=== PATIENT | male | born 1970 | race Caucasian/White ===

== ENCOUNTER 2023-03-30 15:27 | Inpatient (IN) | payer OTHER ==
[2023-03-30 16:14] LABS: #Eosinphils 0.1 thou/uL (0.0-0.7); #Monocytes 0.4 thou/uL (0.11-0.59); #Neutrophils 3.3 thou/uL (1.40-6.50); %Basophils 0.5 % (0.0-1.0); %Eosinophils 3.4 % (0.0-10.0); %Lymphocytes 6.3 % (21.0-51.0); %Monocytes 9.7 % (0.0-10.0); %Neutrophils 79.6 % (42.0-75.0); Hematocrit 26.2 % (42.0-52.0); Hemoglobin 7.5 g/dL (14.0-18.0); Mean Corpuscular HGB CONC 28.6 g/dL (32.0-36.0); Mean Corpuscular Hemoglobin 24.6 pg (27.0-31.0); Mean Corpuscular Volume 85.9 fl (78.0-98.0); Mean Platelet Volume 11.7 fL (7.4-10.4); RBC Distribution Width 18.4 % (11.5-14.5); Red Blood Cell (RBC) Count 3.05 mill/uL (4.70-6.10); White Blood Cell (WBC) Count 4.1 10x3/uL (4.8-10.8)
[2023-03-30 16:17] LABS: Platelet Count 125 10x3/uL (130-400)
[2023-03-30] MEDS ORDERED: fentaNYL 50 mcg/mL 1 mL Vial ONE (16:31)
[2023-03-30 16:47] LABS: Influenza A by NAA Not Detected (NotDetected); Influenza B by NAA Not Detected (NotDetected); SARS-CoV-2 NAA Rapid Test Not Detected (NotDetected)
[2023-03-30 17:09] LABS: Troponin I Less than 0.010 ng/mL (< 0.028)
[2023-03-30 17:11] LABS: Anion Gap 15 mmol/L (10-20); BUN (Urea Nitrogen) 122 mg/dL (8.4-25.7); Calc. Creatinine Clearance 0 mL/min (70-130); Carbon Dioxide 23 mmol/L (22-29); Chloride 104 mmol/L (98-107); Estimated GFR 12; Magnesium 2.9 mg/dL (1.6-2.6); Potassium 5.3 mmol/L (3.5-5.1); Sodium 137 mmol/L (136-145)
[2023-03-30 17:12] LABS: ALT (SGPT) 19 U/L (8-55); AST (SGOT) 17 U/L (5-34); Albumin 3.8 g/dL (3.5-5.0); Alkaline Phosphatase 96 U/L (40-110); Bilirubin, Total 0.4 mg/dL (0.2-1.2); Calcium 8.6 mg/dL (7.6-10.4); Globulin 3.7 g/dL (2.4-3.5); Glucose 59 mg/dL (70-105); Protein, Total 7.5 g/dL (6.0-8.3)
[2023-03-30] MEDS ORDERED: Furosemide 100 MG (10 mL) VIAL ONE (17:43)
[2023-03-30] MEDS ORDERED: Dextrose 5% in Water 1,000 ML IV PRN (17:43)
[2023-03-30] MEDS ORDERED: Dextrose 50% Abboject 50 ML SYRINGE SLOW IVP PRN (17:43)
[2023-03-30] MEDS ORDERED: Ondansetron ODT 4 MG TAB PO PRN (17:43)
[2023-03-30] MEDS ORDERED: Acetaminophen 650 MG Suppository PR PRN (17:43)
[2023-03-30] MEDS ORDERED: Glucagon 1 MG/ML KIT IM PRN (17:43)
[2023-03-30] MEDS ORDERED: CALCIUM GLUC 1 GM (50 ML) BAG ONE (17:44)
[2023-03-30] MEDS ORDERED: Ipratropium/Albuterol 3 ML NEB NEB PRN (18:26)
[2023-03-30 19:17] LABS: Iron 26 ug/dL (65-175); Iron Binding Capacity, Total 339 mcg/dL (261-462)
[2023-03-30] MEDS: Ipratropium/Albuterol 3 ML NEB NEB SCH (19:51)
[2023-03-30] MEDS ORDERED: Famotidine 20 MG TAB PO SCH (21:00)
[2023-03-30] MEDS: Furosemide 100 MG (10 mL) VIAL SLOW IVP SCH (21:51)
[2023-03-30] MEDS: Metolazone 5 MG TAB PO SCH (21:52)
[2023-03-30] MEDS: Morphine 2 MG/ML VIAL SLOW IVP PRN (21:53)
[2023-03-30] MEDS ORDERED: traMADol HCl 50 MG TAB PO PRN (23:43)
[2023-03-30] MEDS ORDERED: Albuterol 200 PUFF (6.7GM INHALER) INH PRN (23:57)
[2023-03-31] MEDS: Iron, Sodium Ferric Gluconate 125 MG in Sodium Chloride 0.9% 100 ML IVPB SCH (00:30)
[2023-03-31 01:18] LABS: Bilirubin Negative (Negative); Blood, Urine 3+ (Negative); Clarity Turbid (Clear); Glucose, Urine (Dipstick) Normal (Negative); Ketone, Urine Negative (Negative); Leukocyte 25 Leu/uL (Negative); Nitrite Negative (Negative); Protein, Urine (Dipstick) 50 mg/dL (Neg-Trace); RBC/HPF Greater than 50 HPF (0-3); Specific Gravity, Urine 1.012 (1.002-1.036); Squamous Epithelial None Seen HPF (0-3); Urobilinogen Normal mg/dL (Less than 2)
[2023-03-31 01:19] LABS: Bacteria/HPF 1+ HPF (None Seen)
[2023-03-31] MEDS: cefTRIAXone\\ROCEPHIN 1 GM in Sodium Chloride 0.9% 100 ML IVPB SCH (01:46)
[2023-03-31 02:22] LABS: #Eosinphils 0.1 thou/uL (0.0-0.7); #Monocytes 0.3 thou/uL (0.11-0.59); #Neutrophils 2.7 thou/uL (1.40-6.50); %Basophils 0.3 % (0.0-1.0); %Eosinophils 2.6 % (0.0-10.0); %Lymphocytes 7.8 % (21.0-51.0); %Monocytes 9.9 % (0.0-10.0); %Neutrophils 78.8 % (42.0-75.0); Hematocrit 26.9 % (42.0-52.0); Hemoglobin 7.5 g/dL (14.0-18.0); Mean Corpuscular HGB CONC 27.9 g/dL (32.0-36.0); Mean Corpuscular Hemoglobin 24.8 pg (27.0-31.0); Mean Platelet Volume 11.5 fL (7.4-10.4); Platelet Count 106 10x3/uL (130-400); RBC Distribution Width 18.5 % (11.5-14.5); Red Blood Cell (RBC) Count 3.03 mill/uL (4.70-6.10); White Blood Cell (WBC) Count 3.5 10x3/uL (4.8-10.8)
[2023-03-31 02:24] LABS: Mean Corpuscular Volume 88.8 fl (78.0-98.0)
[2023-03-31 02:35] LABS: Creatinine, Urine 116.26 mg/dL (63-166)
[2023-03-31 02:38] LABS: Hemoglobin A1c 6.1 % (4.0-6.0)
[2023-03-31 03:18] LABS: Anion Gap 18 mmol/L (10-20); BUN (Urea Nitrogen) 124 mg/dL (8.4-25.7); Calc. Creatinine Clearance 36 mL/min (70-130); Calcium 8.6 mg/dL (7.8-10.44); Carbon Dioxide 19 mmol/L (22-29); Chloride 105 mmol/L (98-107); Estimated GFR 12; Glucose 103 mg/dL (70-105); Magnesium 2.9 mg/dL (1.6-2.6); Potassium 5.4 mmol/L (3.5-5.1); Sodium 137 mmol/L (136-145)
[2023-03-31 05:05] LABS: Free T4 (Free Thyroxine) 0.93 ng/dL (0.70-1.48)
[2023-03-31] MEDS: Insulin Regular 300 UNITS/3 ML VIAL IVP SCH (05:16)
[2023-03-31] MEDS: Dextrose 50% Abboject 50 ML SYRINGE SLOW IVP SCH (05:16)
[2023-03-31] MEDS: Sodium Bicarb 50 mEq/50 ML VIAL IVP SCH (05:17)
[2023-03-31] MEDS ORDERED: Iron Sucrose Complex 200 MG in Sodium Chloride 0.9% 100 ML IVPB SCH (06:30)
[2023-03-31 06:39] LABS: Hematocrit 25.5 % (42.0-52.0); Hemoglobin 7.3 g/dL (14.0-18.0)
[2023-03-31 07:49] LABS: INR-International Normal Ratio 1.3; Prothrombin Time 16.4 sec (12.0-14.7)
[2023-03-31 07:51] LABS: PTT 41.1 sec (22.9-36.1)
[2023-03-31 07:57] LABS: Anion Gap 16 mmol/L (10-20); BUN (Urea Nitrogen) 125 mg/dL (8.4-25.7); Calc. Creatinine Clearance 35 mL/min (70-130); Calcium 8.8 mg/dL (7.8-10.44); Carbon Dioxide 22 mmol/L (22-29); Chloride 106 mmol/L (98-107); Estimated GFR 12; Glucose 108 mg/dL (70-105); Sodium 139 mmol/L (136-145)
[2023-03-31 08:41] LABS: HBSAB Concentration Less than 8.00 mIU/mL; HBSAg Index 0.26 S/CO (0-0.99); Hep B Core Total Ab Non-Reactive (NonReactive); Hep B Core Total Index 0.17 S/CO (0-0.79); Hep B Surf AB Non-Reactive (NonReactive); Hep B Surf Ag Non-Reactive S/CO (NonReactive); Hep C IgG Ab Non-Reactive S/CO (NonReactive)
[2023-03-31] MEDS ORDERED: hydrALAZINE 25 MG TAB PO SCH (09:00)
[2023-03-31] MEDS ORDERED: Lidocaine 1% (PF) 30 ML VIAL NERVE BLCK SCH (11:15)
[2023-03-31] MEDS: Iron, Sodium Ferric Gluconate 250 MG in Sodium Chloride 0.9% 250 ML 250 ML IVPB SCH (15:33)
[2023-03-31] MEDS: Acetaminophen 325 MG TAB PO PRN (15:34)
[2023-03-31] MEDS: Ferrous Sulfate 325 MG TAB PO SCH (20:07)
[2023-03-31] MEDS: Famotidine 20 MG TAB PO SCH (20:07)
[2023-03-31] MEDS: Gabapentin 300 MG CAP PO SCH (20:07)
[2023-03-31] MEDS: Multivitamin W/ Minerals 1 TAB PO SCH (20:09)
[2023-03-31] MEDS ORDERED: Non-Formulary Item 1 EACH (Gabapentin [Neurontin] 800 MG Tablet) PO SCH (21:00)
[2023-04-01] MEDS: Ondansetron PF 4 MG/2 ML Vial IVP PRN (02:35)
[2023-04-01 05:25] LABS: #Monocytes 0.6 thou/uL (0.11-0.59); #Neutrophils 3.2 thou/uL (1.40-6.50); %Lymphocytes 6.6 % (21.0-51.0); %Monocytes 14.8 % (0.0-10.0); %Neutrophils 76.6 % (42.0-75.0); Hematocrit 25.2 % (42.0-52.0); Hemoglobin 7.1 g/dL (14.0-18.0); Mean Corpuscular HGB CONC 28.2 g/dL (32.0-36.0); Mean Corpuscular Hemoglobin 24.8 pg (27.0-31.0); Mean Corpuscular Volume 88.1 fl (78.0-98.0); Mean Platelet Volume 12.7 fL (7.4-10.4); Platelet Count 125 10x3/uL (130-400); RBC Distribution Width 18.3 % (11.5-14.5); Red Blood Cell (RBC) Count 2.86 mill/uL (4.70-6.10); White Blood Cell (WBC) Count 4.1 10x3/uL (4.8-10.8)
[2023-04-01 05:48] LABS: Anion Gap 16 mmol/L (10-20); BUN (Urea Nitrogen) 105 mg/dL (8.4-25.7); Calc. Creatinine Clearance 37 mL/min (70-130); Calcium 8.7 mg/dL (7.8-10.44); Carbon Dioxide 22 mmol/L (22-29); Chloride 104 mmol/L (98-107); Estimated GFR 13; Glucose 80 mg/dL (70-105); Magnesium 2.7 mg/dL (1.6-2.6); Potassium 4.9 mmol/L (3.5-5.1); Sodium 137 mmol/L (136-145)
[2023-04-01] MEDS: Levothyroxine Sodium 75 MCG TAB PO SCH (06:14)
[2023-04-01 06:29] LABS: Anisocytosis MODERATE=16-30 cells HPF (0-5); CellaVision Operator ID lab.sh2; Hypochromia SLIGHT = 6-15 cells HPF (0-5); Ovalocytes SLIGHT = 2-5 cells HPF (0-1); Platelet Adequacy Comment Platelets Decreased; Poikilocytosis SLIGHT = 6-15 cells HPF (0-5); Polychromasia SLIGHT = 2-3 cells HPF (0-2)
[2023-04-02 07:31] LABS: Hematocrit 28.9 % (42.0-52.0); Hemoglobin 8.2 g/dL (14.0-18.0); Manual Diff?? YES; Mean Corpuscular HGB CONC 28.4 g/dL (32.0-36.0); Mean Corpuscular Hemoglobin 24.5 pg (27.0-31.0); Mean Corpuscular Volume 86.3 fl (78.0-98.0); Mean Platelet Volume 11.4 fL (7.4-10.4); Platelet Count 125 10x3/uL (130-400); RBC Distribution Width 18.2 % (11.5-14.5); Red Blood Cell (RBC) Count 3.35 mill/uL (4.70-6.10); White Blood Cell (WBC) Count 4.4 10x3/uL (4.8-10.8)
[2023-04-02 07:37] LABS: Delete Auto Diff?? YES
[2023-04-02 07:58] LABS: Anion Gap 15 mmol/L (10-20); BUN (Urea Nitrogen) 69 mg/dL (8.4-25.7); Calc. Creatinine Clearance 46 mL/min (70-130); Calcium 8.4 mg/dL (7.8-10.44); Carbon Dioxide 27 mmol/L (22-29); Chloride 101 mmol/L (98-107); Estimated GFR 16; Glucose 74 mg/dL (70-105); Potassium 4.5 mmol/L (3.5-5.1); Sodium 138 mmol/L (136-145)
[2023-04-02 08:25] LABS: Anisocytosis SLIGHT = 6-15 cells HPF (0-5); Burr Cells SLIGHT = 2-5 cells HPF (0-1); CellaVision Operator ID LAB.KW3; Elliptocytes SLIGHT = 2-5 cells HPF (0-1); Eosinophils 3 % (0-10); Large Platelets 12.2 % (0-5); Lymphocytes 6 % (21-51); Monocytes 7 % (0-10); Neutrophil 82 % (42-75); Nucleated RBC (Manual Ct) 6 % (0); Platelet Adequacy Comment Platelets Decreased; Polychromasia SLIGHT = 2-3 cells HPF (0-2); Schistocytes SLIGHT = 2-5 cells HPF (0-1); Total Cell Count 98
[2023-04-02] MEDS: Tuberculin PPD 0.1 ML VIAL I-DERMAL SCH (08:55)
[2023-04-02] MEDS: FLU VACC QS2023-24(6MOS UP)/PF 60 MCG/0.5 ML SYRINGE IM ONE (09:13)
[2023-04-02 11:39] VITALS: BMI 499399.4
[2023-04-02] MEDS: Famotidine 20 MG TAB PO SCH (20:00)
[2023-04-02] MEDS: traMADol HCl 50 MG TAB PO PRN (20:01)
[2023-04-03 04:46] LABS: #Eosinphils 0.1 thou/uL (0.0-0.7); #Monocytes 0.9 thou/uL (0.11-0.59); #Neutrophils 3.6 thou/uL (1.40-6.50); %Basophils 0.6 % (0.0-1.0); %Eosinophils 2.1 % (0.0-10.0); %Lymphocytes 8.8 % (21.0-51.0); %Monocytes 17.6 % (0.0-10.0); %Neutrophils 70.1 % (42.0-75.0); Hematocrit 28.2 % (42.0-52.0); Hemoglobin 8.1 g/dL (14.0-18.0); Mean Corpuscular HGB CONC 28.7 g/dL (32.0-36.0); Mean Platelet Volume 11.3 fL (7.4-10.4); Platelet Count 140 10x3/uL (130-400); RBC Distribution Width 18.1 % (11.5-14.5); Red Blood Cell (RBC) Count 3.37 mill/uL (4.70-6.10); White Blood Cell (WBC) Count 5.1 10x3/uL (4.8-10.8)
[2023-04-03 05:03] LABS: Phosphorus 3.7 mg/dL (2.3-4.7)
[2023-04-03 05:16] LABS: Mean Corpuscular Volume 83.7 fl (78.0-98.0)
[2023-04-03] MEDS: EPOETIN ALFA-EPBX (ESRD) 10,000 UNITS/ML VIAL SC SCH (10:18)
[2023-04-03] MEDS: hydrALAZINE 25 MG TAB PO SCH (15:00)
[2023-04-03] MEDS: Carvedilol 6.25 MG TAB PO SCH (18:15)
[2023-04-03] MEDS ORDERED: Melatonin 3 MG TAB PO PRN (19:54)
[2023-04-03] MEDS ORDERED: Heparin 5,000 UNITS/ML VIAL SC SCH (21:00)
[2023-04-04] MEDS: Lorazepam 2 MG/ML VIAL SLOW IVP SCH ×2 (02:41→03:56)
[2023-04-04 03:23] LABS: #Eosinphils 0.1 thou/uL (0.0-0.7); #Monocytes 0.9 thou/uL (0.11-0.59); #Neutrophils 4.3 thou/uL (1.40-6.50); %Basophils 0.5 % (0.0-1.0); %Eosinophils 1.6 % (0.0-10.0); %Lymphocytes 6.8 % (21.0-51.0); %Neutrophils 75.4 % (42.0-75.0); Hematocrit 28.2 % (42.0-52.0); Hemoglobin 8.2 g/dL (14.0-18.0); Mean Corpuscular HGB CONC 29.1 g/dL (32.0-36.0); Mean Corpuscular Hemoglobin 24.8 pg (27.0-31.0); Mean Corpuscular Volume 85.2 fl (78.0-98.0); Mean Platelet Volume 10.4 fL (7.4-10.4); Platelet Count 124 10x3/uL (130-400); RBC Distribution Width 18.5 % (11.5-14.5); Red Blood Cell (RBC) Count 3.31 mill/uL (4.70-6.10); White Blood Cell (WBC) Count 5.8 10x3/uL (4.8-10.8)
[2023-04-04 03:48] LABS: Anion Gap 16 mmol/L (10-20); BUN (Urea Nitrogen) 46 mg/dL (8.4-25.7); Calc. Creatinine Clearance 49 mL/min (70-130); Calcium 9.2 mg/dL (7.8-10.44); Carbon Dioxide 25 mmol/L (22-29); Chloride 103 mmol/L (98-107); Estimated GFR 20; Glucose 78 mg/dL (70-105); Phosphorus 3.7 mg/dL (2.3-4.7); Potassium 3.9 mmol/L (3.5-5.1); Sodium 140 mmol/L (136-145)
[2023-04-04] MEDS: READ PPD TEST SITE PO SCH (08:35)
[2023-04-05] MEDS: hydrALAZINE 25 MG TAB PO SCH (00:54)
[2023-04-05] MEDS: Amlodipine 5 MG TAB PO SCH (00:55)
[2023-04-05] MEDS: Heparin 5,000 UNITS/ML VIAL SC SCH (00:55)
[2023-04-05] MEDS: Haloperidol Lactate 5 MG/ML VIAL IM SCH (02:45)
[2023-04-05] MEDS ORDERED: EPINEPHrine 1 MG/ML VIAL ONE (07:31)
[2023-04-05] MEDS ORDERED: Bupivacaine PF 0.5% 30 ML VIAL ONE (07:31)
[2023-04-05] MEDS ORDERED: Heparin 10,000 UNITS/ 10 ML VIAL ONE (07:31)
[2023-04-05] MEDS ORDERED: Lidocaine 2% PF 100 mg/5 ml Syringe ONE (07:31)
[2023-04-05] MEDS ORDERED: Midazolam HCl 2 mg/2 ml Vial ONE (07:37)
[2023-04-05] MEDS ORDERED: PROPOFOL 0 ML ONE (07:37)
[2023-04-05] MEDS ORDERED: fentaNYL 50 mcg/mL 1 mL Vial ONE (07:38)
[2023-04-05] MEDS ORDERED: Lidocaine 2% PF 5 ML VIAL ONE (07:45)
[2023-04-05 11:49] LABS: #Eosinphils 0.1 thou/uL (0.0-0.7); #Monocytes 0.7 thou/uL (0.11-0.59); #Neutrophils 6.1 thou/uL (1.40-6.50); %Basophils 0.4 % (0.0-1.0); %Eosinophils 1.1 % (0.0-10.0); %Lymphocytes 5.4 % (21.0-51.0); %Neutrophils 82.8 % (42.0-75.0); Hematocrit 29.5 % (42.0-52.0); Hemoglobin 8.7 g/dL (14.0-18.0); Mean Corpuscular HGB CONC 29.5 g/dL (32.0-36.0); Mean Corpuscular Hemoglobin 25.1 pg (27.0-31.0); Mean Corpuscular Volume 85.3 fl (78.0-98.0); Mean Platelet Volume 10.3 fL (7.4-10.4); Platelet Count 125 10x3/uL (130-400); Red Blood Cell (RBC) Count 3.46 mill/uL (4.70-6.10); White Blood Cell (WBC) Count 7.4 10x3/uL (4.8-10.8)
[2023-04-05 12:11] LABS: Anion Gap 20 mmol/L (10-20); BUN (Urea Nitrogen) 37 mg/dL (8.4-25.7); Calc. Creatinine Clearance 64 mL/min (70-130); Calcium 8.9 mg/dL (7.8-10.44); Carbon Dioxide 24 mmol/L (22-29); Chloride 102 mmol/L (98-107); Estimated GFR 28; Glucose 85 mg/dL (70-105); Potassium 3.8 mmol/L (3.5-5.1); Sodium 142 mmol/L (136-145)
[2023-04-05] MEDS: QUEtiapine 25 MG TAB PO SCH (22:52)
[2023-04-06 05:18] LABS: #Eosinphils 0.1 thou/uL (0.0-0.7); #Monocytes 0.8 thou/uL (0.11-0.59); #Neutrophils 4.1 thou/uL (1.40-6.50); %Basophils 0.4 % (0.0-1.0); %Eosinophils 1.6 % (0.0-10.0); %Lymphocytes 9.5 % (21.0-51.0); Hematocrit 28.3 % (42.0-52.0); Hemoglobin 8.4 g/dL (14.0-18.0); Mean Corpuscular HGB CONC 29.7 g/dL (32.0-36.0); Mean Corpuscular Hemoglobin 24.9 pg (27.0-31.0); Mean Corpuscular Volume 83.7 fl (78.0-98.0); Mean Platelet Volume 10.2 fL (7.4-10.4); Platelet Count 122 10x3/uL (130-400); RBC Distribution Width 19.2 % (11.5-14.5); Red Blood Cell (RBC) Count 3.38 mill/uL (4.70-6.10); White Blood Cell (WBC) Count 5.6 10x3/uL (4.8-10.8)
[2023-04-06 05:49] LABS: Anion Gap 16 mmol/L (10-20); BUN (Urea Nitrogen) 46 mg/dL (8.4-25.7); Calc. Creatinine Clearance 55 mL/min (70-130); Carbon Dioxide 25 mmol/L (22-29); Chloride 103 mmol/L (98-107); Estimated GFR 24; Glucose 79 mg/dL (70-105); Potassium 3.3 mmol/L (3.5-5.1); Sodium 141 mmol/L (136-145)
[2023-04-06] MEDS: Potassium Chloride 20 MEQ TAB PO SCH (09:17)
[2023-04-06] MEDS ORDERED: Glucagon 1 MG/ML KIT IM PRN (12:51)
[2023-04-06] MEDS ORDERED: Dextrose 5% in Water 1,000 ML IV PRN (12:51)
[2023-04-06] MEDS ORDERED: Dextrose 50% Abboject 50 ML SYRINGE SLOW IVP PRN (12:51)
[2023-04-06] MEDS ORDERED: HumaLOG 300 UNITS/3 ML VIAL SC PRN (12:51)
[2023-04-06] MEDS: hydrALAZINE 20 MG/ML VIAL SLOW IVP PRN (13:32)
[2023-04-06] MEDS: HumaLOG 300 UNITS/3 ML VIAL SC PRN (17:48)
[2023-04-06] MEDS: Amlodipine 10 MG TAB PO SCH (20:44)
[2023-04-06] MEDS: Ammonium Lactate 12% Lotion 225 GM BOT TOP SCH (20:45)
[2023-04-07 04:41] LABS: #Eosinphils 0.2 thou/uL (0.0-0.7); #Monocytes 0.8 thou/uL (0.11-0.59); #Neutrophils 3.2 thou/uL (1.40-6.50); %Basophils 0.6 % (0.0-1.0); %Eosinophils 4.7 % (0.0-10.0); %Lymphocytes 12.4 % (21.0-51.0); %Monocytes 15.5 % (0.0-10.0); %Neutrophils 66.4 % (42.0-75.0); Hematocrit 27.3 % (42.0-52.0); Hemoglobin 8.3 g/dL (14.0-18.0); Mean Corpuscular HGB CONC 30.4 g/dL (32.0-36.0); Mean Corpuscular Hemoglobin 25.5 pg (27.0-31.0); Mean Corpuscular Volume 83.7 fl (78.0-98.0); Mean Platelet Volume 10.3 fL (7.4-10.4); Platelet Count 113 10x3/uL (130-400); RBC Distribution Width 19.2 % (11.5-14.5); Red Blood Cell (RBC) Count 3.26 mill/uL (4.70-6.10); White Blood Cell (WBC) Count 4.9 10x3/uL (4.8-10.8)
[2023-04-07 05:05] LABS: Anion Gap 12 mmol/L (10-20); BUN (Urea Nitrogen) 31 mg/dL (8.4-25.7); Calc. Creatinine Clearance 64 mL/min (70-130); Calcium 8.7 mg/dL (7.8-10.44); Carbon Dioxide 27 mmol/L (22-29); Chloride 102 mmol/L (98-107); Estimated GFR 29; Glucose 94 mg/dL (70-105); Potassium 3.1 mmol/L (3.5-5.1); Sodium 138 mmol/L (136-145)
[2023-04-07] MEDS ORDERED: EPINEPHrine 1 MG/ML VIAL ONE (07:28)
[2023-04-07] MEDS ORDERED: Heparin 10,000 UNITS/ 10 ML VIAL ONE (07:28)
[2023-04-07] MEDS ORDERED: Lidocaine 2% PF 5 ML VIAL ONE (07:29)
[2023-04-07] MEDS ORDERED: Bupivacaine 0.25% HCL 30 ML VIAL ONE (07:29)
[2023-04-07] MEDS ORDERED: Ondansetron HCl/PF 4 MG/2 ML Vial IVP PRN (07:48)
[2023-04-07] MEDS ORDERED: Promethazine HCl 25 MG/ML VIAL IM PRN (07:48)
[2023-04-07] MEDS ORDERED: CEFAZOLIN 2 GM VIAL ONE (08:08)
[2023-04-07] MEDS ORDERED: Sodium Chloride 0.9% 100 ML ONE (08:08)
[2023-04-07] MEDS ORDERED: fentaNYL 50 mcg/mL 1 mL Vial ONE (08:13)
[2023-04-07] MEDS ORDERED: Ketamine In 0.9 % NaCl 50 MG/5 ML SYRINGE ONE (08:14)
[2023-04-07] MEDS ORDERED: PROPOFOL 20 ML ONE (08:17)
[2023-04-07] MEDS ORDERED: Glycopyrrolate 0.2 MG/ML 5 ML SYRINGE ONE (08:30)
[2023-04-07] MEDS: Potassium Chloride 20 MEQ TAB PO SCH (11:27)
[2023-04-08 05:20] LABS: Anion Gap 13 mmol/L (10-20); BUN (Urea Nitrogen) 36 mg/dL (8.4-25.7); Calc. Creatinine Clearance 57 mL/min (70-130); Calcium 8.6 mg/dL (7.8-10.44); Carbon Dioxide 27 mmol/L (22-29); Chloride 105 mmol/L (98-107); Estimated GFR 26; Glucose 94 mg/dL (70-105); Potassium 3.6 mmol/L (3.5-5.1); Sodium 141 mmol/L (136-145)
[2023-04-08] MEDS: Lidocaine 1% w/Epinephrine 1:100K 20 ML VIAL ONE (15:32)
[2023-04-08] MEDS: Oxymetazoline HCl 0.05% (30 ML BOT) NS PRN (18:19)
[2023-04-08 18:35] LABS: Hematocrit 26.3 % (42.0-52.0); Hemoglobin 7.7 g/dL (14.0-18.0); Platelet Count 104 10x3/uL (130-400)
[2023-04-09 06:02] LABS: Anion Gap 10 mmol/L (10-20); BUN (Urea Nitrogen) 42 mg/dL (8.4-25.7); Calc. Creatinine Clearance 54 mL/min (70-130); Calcium 8.5 mg/dL (7.8-10.44); Carbon Dioxide 28 mmol/L (22-29); Chloride 104 mmol/L (98-107); Estimated GFR 23; Glucose 127 mg/dL (70-105); Potassium 3.4 mmol/L (3.5-5.1); Sodium 139 mmol/L (136-145)
[2023-04-09 07:40] LABS: #Eosinphils 0.4 thou/uL (0.0-0.7); #Monocytes 0.7 thou/uL (0.11-0.59); #Neutrophils 3.3 thou/uL (1.40-6.50); %Basophils 0.4 % (0.0-1.0); %Eosinophils 7.7 % (0.0-10.0); %Lymphocytes 10.1 % (21.0-51.0); %Monocytes 13.9 % (0.0-10.0); %Neutrophils 67.5 % (42.0-75.0); Hematocrit 25.5 % (42.0-52.0); Hemoglobin 7.4 g/dL (14.0-18.0); Mean Corpuscular Hemoglobin 25.3 pg (27.0-31.0); Mean Platelet Volume 10.9 fL (7.4-10.4); Platelet Count 94 10x3/uL (130-400); RBC Distribution Width 18.6 % (11.5-14.5); Red Blood Cell (RBC) Count 2.93 mill/uL (4.70-6.10); White Blood Cell (WBC) Count 4.8 10x3/uL (4.8-10.8)
[2023-04-09] MEDS: Potassium Chloride 20 MEQ TAB PO SCH (08:04)
[2023-04-10 06:25] LABS: #Eosinphils 0.5 thou/uL (0.0-0.7); #Monocytes 0.6 thou/uL (0.11-0.59); #Neutrophils 3.2 thou/uL (1.40-6.50); %Basophils 0.6 % (0.0-1.0); %Eosinophils 9.3 % (0.0-10.0); %Lymphocytes 12.6 % (21.0-51.0); %Monocytes 11.9 % (0.0-10.0); %Neutrophils 65.2 % (42.0-75.0); Hematocrit 24.9 % (42.0-52.0); Hemoglobin 7.2 g/dL (14.0-18.0); Mean Corpuscular HGB CONC 28.9 g/dL (32.0-36.0); Mean Corpuscular Hemoglobin 25.3 pg (27.0-31.0); Mean Corpuscular Volume 87.4 fl (78.0-98.0); Mean Platelet Volume 10.7 fL (7.4-10.4); RBC Distribution Width 18.6 % (11.5-14.5); Red Blood Cell (RBC) Count 2.85 mill/uL (4.70-6.10); White Blood Cell (WBC) Count 4.9 10x3/uL (4.8-10.8)
[2023-04-10 06:48] LABS: Anion Gap 10 mmol/L (10-20); BUN (Urea Nitrogen) 25 mg/dL (8.4-25.7); Calc. Creatinine Clearance 72 mL/min (70-130); Calcium 8.2 mg/dL (7.8-10.44); Carbon Dioxide 30 mmol/L (22-29); Chloride 102 mmol/L (98-107); Estimated GFR 33; Glucose 108 mg/dL (70-105); Potassium 3.7 mmol/L (3.5-5.1); Sodium 138 mmol/L (136-145)
[2023-04-10 06:55] LABS: Platelet Count 91 10x3/uL (130-400)
[2023-04-10] MEDS: EPOETIN ALFA-EPBX (ESRD) 10,000 UNITS/ML VIAL SC SCH (14:31)
[2023-04-11 05:44] LABS: Anion Gap 14 mmol/L (10-20); BUN (Urea Nitrogen) 37 mg/dL (8.4-25.7); Calc. Creatinine Clearance 52 mL/min (70-130); Calcium 8.5 mg/dL (7.8-10.44); Carbon Dioxide 27 mmol/L (22-29); Chloride 103 mmol/L (98-107); Estimated GFR 22; Glucose 150 mg/dL (70-105); Potassium 3.9 mmol/L (3.5-5.1); Sodium 140 mmol/L (136-145)
[2023-04-11 15:40] VITALS: TEMP 97.8
[2023-04-11 17:17] VITALS: BP 165/72
== END 2023-04-11 19:15 | DRG 673 ==
LOC: ERS 15:27 → 2NO 17:47
PROVIDERS: ADMIT Family Medicine; ATTEND Internal Medicine
PROC: 02HV33Z Insertion of Infusion Device into Superior Vena Cava, Percutaneous Approach (ICD-10-PCS; 2023-03-31)
PROC: 5A1D70Z Performance of Urinary Filtration, Intermittent, Less than 6 Hours Per Day (ICD-10-PCS; 2023-03-31)
PROC: 30233N1 Transfusion of Nonautologous Red Blood Cells into Peripheral Vein, Percutaneous Approach (ICD-10-PCS; 2023-04-01)
PROC: 5A1D70Z Performance of Urinary Filtration, Intermittent, Less than 6 Hours Per Day (ICD-10-PCS; 2023-04-01)
PROC: 5A1D70Z Performance of Urinary Filtration, Intermittent, Less than 6 Hours Per Day (ICD-10-PCS; 2023-04-02)
PROC: 5A1D70Z Performance of Urinary Filtration, Intermittent, Less than 6 Hours Per Day (ICD-10-PCS; 2023-04-04)
PROC: 4A00X4Z Measurement of Central Nervous Electrical Activity, External Approach (ICD-10-PCS; principal; 2023-04-05)
PROC: 3E033XZ Introduction of Vasopressor into Peripheral Vein, Percutaneous Approach (ICD-10-PCS; 2023-04-05)
PROC: 5A1D70Z Performance of Urinary Filtration, Intermittent, Less than 6 Hours Per Day (ICD-10-PCS; 2023-04-06)
PROC: 0JH63XZ Insertion of Tunneled Vascular Access Device into Chest Subcutaneous Tissue and Fascia, Percutaneous Approach (ICD-10-PCS; 2023-04-07)
PROC: 02HV33Z Insertion of Infusion Device into Superior Vena Cava, Percutaneous Approach (ICD-10-PCS; 2023-04-07)
PROC: 0W383ZZ Control Bleeding in Chest Wall, Percutaneous Approach (ICD-10-PCS; 2023-04-08)
PROC: 5A1D70Z Performance of Urinary Filtration, Intermittent, Less than 6 Hours Per Day (ICD-10-PCS; 2023-04-09)
DX: N17.9 Acute kidney failure, unspecified (principal); G93.41 Metabolic encephalopathy; I50.31 Acute diastolic (congestive) heart failure; J96.01 Acute respiratory failure with hypoxia; I13.2 Hypertensive heart and chronic kidney disease with heart failure and with stage 5 chronic kidney disease, or end stage renal disease; Z68.41 Body mass index [BMI] 40.0-44.9, adult; D61.818 Other pancytopenia; T82.838A Hemorrhage due to vascular prosthetic devices, implants and grafts, initial encounter; N18.6 End stage renal disease; E11.22 Type 2 diabetes mellitus with diabetic chronic kidney disease; E11.40 Type 2 diabetes mellitus with diabetic neuropathy, unspecified; J45.909 Unspecified asthma, uncomplicated; E66.01 Morbid (severe) obesity due to excess calories; E87.5 Hyperkalemia; E11.649 Type 2 diabetes mellitus with hypoglycemia without coma; E87.6 Hypokalemia; R53.81 Other malaise; I89.0 Lymphedema, not elsewhere classified; D63.1 Anemia in chronic kidney disease; E03.9 Hypothyroidism, unspecified; Z79.899 Other long term (current) drug therapy; Z79.51 Long term (current) use of inhaled steroids; Z88.8 Allergy status to other drugs, medicaments and biological substances; Z98.890 Other specified postprocedural states; Z83.3 Family history of diabetes mellitus
CPT/HCPCS: 36415; 36416; 36430; 70450; 71045; 72125; 76700; 76856; 80048; 80053; 81001; 82140; 82570; 82728; 83036; 83540; 83550; 83605; 83735; 83880; 83970; 84100; 84156; 84300; 84439; 84443; 84481; 84484; 84540; 85014; 85018; 85025; 85049; 85610; 85730; 86580; 86704; 86850; 86870; 86900; 86901; 87086; 90471; 90686; 90935; 93005; 93010; 94640; 95711; 95819; 96365; 96367; 96375; 97139; A6258; C1752; G0008; G0257; J0171; J0360; J0613; J0665; J0696; J1630; J1644; J1815; J1940; J2001; J2060; J2250; J2272; J2405; J2704; J2916; J3010; J3490; J7050; J7620; J7999; P9016; Q5105

== ENCOUNTER 2023-06-19 09:32 | Outpatient (CLI) | payer OTHER ==
[2023-06-17 09:53] VITALS: BMI 30.1
== END 2023-06-19 09:33 | disposition home or self-care (01) ==
LOC: BICCT 09:32
PROVIDERS: ATTEND Urology
DX: N18.6 End stage renal disease (principal); N28.1 Cyst of kidney, acquired; N20.0 Calculus of kidney; K59.00 Constipation, unspecified; K57.30 Diverticulosis of large intestine without perforation or abscess without bleeding; R59.0 Localized enlarged lymph nodes; Z99.2 Dependence on renal dialysis
CPT/HCPCS: 74178; Q9967

== ENCOUNTER 2024-01-30 08:52 | Day surgery (SDC) | payer MEDICARE ==
[2024-01-29 12:45] VITALS: BMI 34.8
[~2024-01-30 08:52] MED LIST: Fluorouracil 100 MG, EPINEPHrine 0.3 MG in Ophthalmic Irrigation Solution 500 ML IRR SCH
[2024-01-30] MEDS ORDERED: PHENYLephrine 2.5% Ophth Soln 15 ml Bottle ONE (09:46)
[2024-01-30] MEDS ORDERED: Cyclopentolate 1% Opth Drop 2 ML BOT ONE (09:46)
[2024-01-30] MEDS ORDERED: Lidocaine 2% PF 5 ML VIAL ONE (10:18)
[2024-01-30] MEDS ORDERED: PROPOFOL 20 ML ONE (10:18)
[2024-01-30 10:56] LABS: #Basophils 0.08 10x3/uL (0.0-0.2); %Basophils 1.2 % (0.0-1.0); %Eosinophils 5.5 % (0.0-10.0); %Lymphocytes 21.5 % (21.0-51.0); %Monocytes 7.6 % (0.0-10.0); %Neutrophils 62.5 % (42.0-75.0); Hematocrit 38.7 % (42.0-52.0); Hemoglobin 13.2 g/dL (14.0-18.0); Mean Corpuscular HGB CONC 34.1 g/dL (32.0-36.0); Mean Corpuscular Hemoglobin 28.6 pg (27.0-31.0); Mean Corpuscular Volume 83.8 fL (78.0-98.0); Mean Platelet Volume 10.2 fL (7.4-10.4); Platelet Count 137 10x3/uL (130-400); RBC Distribution Width 13.5 % (11.5-14.5); Red Blood Cell (RBC) Count 4.62 mill/uL (4.70-6.10)
[2024-01-30] MEDS ORDERED: fentaNYL PF 100 MCG/2 ML SYRINGE ONE (11:21)
[2024-01-30 11:22] LABS: Anion Gap 15 mmol/L (10-20); BUN (Urea Nitrogen) 61 mg/dL (8.4-25.7); Calc. Creatinine Clearance 33 mL/min (70-130); Carbon Dioxide 25 mmol/L (22-29); Chloride 106 mmol/L (98-107); Estimated GFR 16; Glucose 177 mg/dL (70-105); Potassium 4.4 mmol/L (3.5-5.1); Sodium 142 mmol/L (136-145)
[2024-01-30] MEDS ORDERED: Ondansetron PF 4 MG/2 ML Vial ONE (11:24)
[2024-01-30] MEDS ORDERED: Dexamethasone 4 mg/ml Vial ONE (11:24)
[2024-01-30] MEDS ORDERED: ePHEDrine Sulfate 50 MG/10 ML VIAL ONE (11:38)
== END 2024-01-30 15:00 | disposition home or self-care (01) ==
LOC: SDC 08:52
PROVIDERS: ATTEND Ophthalmology Retina Specialist
PROC: 08T43ZZ Resection of Right Vitreous, Percutaneous Approach (ICD-10-PCS; principal; 2024-01-30)
DX: E11.3521 Type 2 diabetes mellitus with proliferative diabetic retinopathy with traction retinal detachment involving the macula, right eye (principal); E11.42 Type 2 diabetes mellitus with diabetic polyneuropathy; Z88.5 Allergy status to narcotic agent; Z88.8 Allergy status to other drugs, medicaments and biological substances; Z79.899 Other long term (current) drug therapy
CPT/HCPCS: 67113; 80048; 82962; 85025; C1814; J0171; J1100; J2405; J2704; J9190; 36416

== ENCOUNTER 2024-09-10 07:34 | Day surgery (SDC) | payer MEDICARE ==
[2024-09-09 10:38] VITALS: BMI 36.5
[~2024-09-10 07:34] MED LIST changes: -Fluorouracil 100 MG, EPINEPHrine 0.3 MG in Ophthalmic Irrigation Solution 500 ML IRR SCH; +Fluorouracil 100 MG, Enoxaparin 25 MG, EPINEPHrine 0.3 MG in Ophthalmic Irrigation Solu... IRR SCH
[2024-09-10] MEDS ORDERED: Cyclopentolate 1% Opth Drop 2 ML BOT ONE (09:21)
[2024-09-10] MEDS ORDERED: Famotidine/PF 20 mg/2ml Vial ONE (09:53)
[2024-09-10] MEDS ORDERED: PROPOFOL 20 ML ONE (10:09)
[2024-09-10] MEDS ORDERED: Lidocaine 1% PF 5 ML VIAL ONE ×2 (10:10→11:31)
[2024-09-10] MEDS ORDERED: PHENYLEPHRINE-NS 100 MCG/ML 10 ML SYRINGE ONE (11:26)
[2024-09-10] MEDS ORDERED: CEFAZOLIN 1 GM VIAL ONE (11:31)
[2024-09-10] MEDS ORDERED: Enoxaparin 30 MG (0.3 mL) SYRINGE ONE (11:31)
[2024-09-10] MEDS ORDERED: Maxitrol 0.1% Opth Oint 3.5 GM TUBE ONE (11:31)
[2024-09-10] MEDS ORDERED: Lidocaine 4% PF 5 ML AMP ONE (11:31)
[2024-09-10] MEDS ORDERED: Ondansetron PF 4 MG/2 ML Vial ONE (11:37)
== END 2024-09-10 14:20 | disposition home or self-care (01) ==
LOC: SDC 07:34
PROVIDERS: ATTEND Ophthalmology Retina Specialist
PROC: 08T53ZZ Resection of Left Vitreous, Percutaneous Approach (ICD-10-PCS; principal; 2024-09-10)
DX: E11.3522 Type 2 diabetes mellitus with proliferative diabetic retinopathy with traction retinal detachment involving the macula, left eye (principal); H33.42 Traction detachment of retina, left eye; J45.909 Unspecified asthma, uncomplicated; E11.22 Type 2 diabetes mellitus with diabetic chronic kidney disease; I12.9 Hypertensive chronic kidney disease with stage 1 through stage 4 chronic kidney disease, or unspecified chronic kidney disease; N18.9 Chronic kidney disease, unspecified; Z88.5 Allergy status to narcotic agent; Z88.8 Allergy status to other drugs, medicaments and biological substances
CPT/HCPCS: 67113; 82962; C1814; J0166; J0690; J1100; J1308; J1650; J2250; J2405; J2704; J3010; J3301; J3490; J9190; 36416